=== PATIENT | female | born 1990 | race Caucasian/White ===

== ENCOUNTER 2023-08-15 11:28 | Emergency (ER) | payer MEDICAID ==
[~2023-08-15] VITALS: Ht 177.8 cm; Wt 49.9 kg
[2023-08-15 11:31] VITALS: BP 130/96; PULSE 142; RESP 20; TEMP 98.8; O2SAT 98
[2023-08-15] MEDS ORDERED: NACL 0.9% 2,000 ML IV ONE (11:50)
[2023-08-15] MEDS ORDERED: HALOPERIDOL IM 5 MG/ML VIAL IM ONE (11:50)
[2023-08-15] MEDS ORDERED: LORazepam 2 MG/ML VIAL IVP ONE (12:15)
[2023-08-15] MEDS ORDERED: diphenhydrAMINE 50 MG/ML VIAL IVP ONE (12:15)
[2023-08-15 12:50] LABS: BASOPHILS # (AUTO) 0.2 K/uL (0.00-0.22); BASOPHILS % (AUTO) 1.1 % (0.0-2.0); EOSINOPHILS # (AUTO) 0.3 K/uL (0-0.4); EOSINOPHILS % (AUTO) 1.9 % (0.0-4.0); HEMATOCRIT 36.7 % (36-48); HEMOGLOBIN 12.3 g/dL (12.0-16.0); LYMPHOCYTES % (AUTO) 11.5 % (20.5-51.1); MEAN CORPUSCULAR HEMOGLOBIN 30 pg (27-31); MEAN CORPUSCULAR HGB CONC 34 g/dL (33-37); MEAN CORPUSCULAR VOLUME 87.8 fL (80-94); MONOCYTES # (AUTO) 0.8 K/uL (0.8-1.0); MONOCYTES % (AUTO) 4.5 % (1.7-9.3); NEUTROPHILS # (AUTO) 14.3 K/uL (1.8-7.7); PLATELET COUNT (AUTO) 328 K/uL (140-450); RED BLOOD CELL COUNT(AUTO) 4.17 MIL/uL (4.20-5.40); RED CELL DISTRIBUTION WIDTH 12.7 % (11.6-13.7); WHITE BLOOD COUNT (AUTO) 17.6 K/uL (4.8-10.8)
[2023-08-15 13:09] LABS: ANION GAP 13.5 (8-16); CARBON DIOXIDE 22.8 mmol/L (21-32); CREATININE 0.8 mg/dL (0.6-1.3); POTASSIUM 3.3 mmol/L (3.5-5.1)
[2023-08-15 13:12] LABS: ALCOHOL, BLOOD < 3 mg/dL (<10)
[2023-08-15 13:23] LABS: SALICYLATE < 2.8 mg/dL (2.8-20.0)
[2023-08-15 13:24] LABS: ACETAMINOPHEN < 0.5 ug/ml (10-30)
[2023-08-15] MEDS ORDERED: LIDOCAINE MPF 1% 10 MG/ML VIAL INJ ONE (13:25)
[2023-08-15] MEDS ORDERED: SULF-59 PO (14:23)
[2023-08-15 15:06] LABS: AMPHETAMINE, URINE POSITIVE ng/ml (NEG <=1000); BARBITURATE, URINE NEGATIVE ng/ml (NEG <=200); BENZODIAZEPINE, URINE NEGATIVE ng/mL (NEG <=200); CANNABINOID, URINE NEGATIVE ng/mL (NEG <=50); COCAINE, URINE NEGATIVE ng/mL (NEG <=300); OPIATE, URINE NEGATIVE ng/mL (NEG <=2000); PHENCYCLIDINE SCREEN,URINE NEGATIVE ng/mL (NEG <=25)
[2023-08-15 22:13] VITALS: O2SAT 98
[2023-08-16 01:19] VITALS: O2SAT 96
[2023-08-16 03:19] VITALS: O2SAT 98
[2023-08-16 05:29] VITALS: O2SAT 98
[2023-08-16 07:25] VITALS: O2SAT 98
[2023-08-16 09:26] VITALS: O2SAT 98
[2023-08-16 10:40] VITALS: BP 116/72; PULSE 67; RESP 16; TEMP 98; O2SAT 99
== END 2023-08-16 10:32 ==
LOC: MED 11:28
DX: S61.210A Laceration without foreign body of right index finger without damage to nail, initial encounter (principal); F15.10 Other stimulant abuse, uncomplicated; Z20.822 Contact with and (suspected) exposure to COVID-19; X58.XXXA Exposure to other specified factors, initial encounter; Y92.89 Other specified places as the place of occurrence of the external cause; Y93.89 Activity, other specified; Y99.8 Other external cause status
CPT/HCPCS: 12001; 36415; 70450; 80048; 80305; 81025; 85025; 87426; 87635; 96361; 96372; 96374; 96375; 99285; G0480; G0482; J1200; J1630; J2001; J2060; J7030